=== PATIENT | male | born 1970 | race Caucasian/White ===

== ENCOUNTER 2020-09-19 11:43 | Emergency (ER) | payer OTHER, SELFPAY ==
[2020-09-19 11:50] VITALS: BP 174/84; PULSE 74; RESP 15; TEMP 37; O2SAT 96; BMI 39.3
--- NOTE | 2020-09-19 11:55 | DI.RAD.S_ITS ---
PROCEDURE: XR FINGER RT MIN 2V INDICATIONS: SMASHED FINGER,LAC RIGHT THUMB TECHNIQUE: AP hand, 2 views of the 1st finger(s) acquired. COMPARISON: None. FINDINGS: Bones: There is a comminuted fracture of the distal aspect of the distal 1st phalanx. Soft tissues: No suspicious soft tissue calcifications. IMPRESSION: Distal 1st tuft fracture. Dictated by: Octavia Stephens M.D. on 09/19/2020 at 12:20 Approved by: Octavia Stephens M.D. on 09/19/2020 at 12:24
[2020-09-19] MEDS: BACITRACIN OINT 0.9 GM PCKT 1 APPLIC TOP (13:16)
[2020-09-19] MEDS: IBUPROFEN 400 MG TABLET 800 MG PO (13:17)
[2020-09-19] MEDS: LIDO 1%/SOD BICARB 8.4% (10ML) 10 ML SYRINGE INJ (13:17)
[2020-09-19] MEDS: cephALEXin 250 MG CAPSULE 500 MG PO (13:17)
[2020-09-19] MEDS: ACETAMINOPHEN 325 MG TABLET 975 MG PO (13:17)
--- NOTE | 2020-09-19 14:14 | ED.WOUNDLAC ---
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 Patient reports injury occurred during work from a crush injury at 9:30 a.m. patient reports affected finger got squished by steel rock drill hand iii cutter. Patient reports pain located in distal right thumb with swelling. Reports pain as 7/10 and describes as throbbing. Patient reports intact sensation and is able to move right thumb but painful. Last tetanus immunization received 2 months ago. Related Data Previous Rx's Medication Instructions Recorded cephalexin [Keflex] 500 mg PO QID 7 Days #28 cap 09/19/20 hydrocodone-acetaminophen [[place]] 1 tab PO Q6H PRN #7 tab 09/19/20 Allergies Allergy/AdvReac Type Severity Reaction Status Date / Time No Known Drug Allergies Allergy Verified 09/19/20 11:56 Review of Systems <REMEDIOS Anderson - Last Filed: 09/19/20 14:43> Review of Systems Narrative: General: Denies fever, chills, fatigue, malaise, sweats. Respiratory: Denies dyspnea, cough, wheezing, hemoptysis, sputum. Cardiovascular: Denies chest pain, palpitations, orthopnea, edema. Gastrointestinal: Denies nausea, vomiting, abdominal pain, diarrhea, constipation, melena. : Denies dysuria, frequency, incontinence, hematuria, urinary retention. Musculoskeletal: See HPI Skin: See HPI Patient History <REMEDIOS Anderson - Last Filed: 09/19/20 14:43> Medical History No significant past medical history Surgical History No pertinent past surgical history Social History Smoking Status: Current every day smoker alcohol intake: never substance use type: does not use Exam <REMEDIOS Anderson - Last Filed: 09/19/20 14:43> Narrative Exam Narrative: General appearance: well developed, well nourished, in no acute distress. Head: normocephalic, atraumatic, no scalp lesions, non-tender. ENT: Hearing grossly intact. Airway patent. Neck/Thyroid: neck supple, full range of motion, no visible masses or meningeal signs. No JVD, non-tender without lymphadenopathy. Skin: 3 cm laceration located in volar aspect of proximal right thumb. Distal thumb with edema and warmth and tender to palpate. Warm and dry and appropriate color for ethnicity. Heart: no clubbing, no cyanosis, no edema. S1 and S2 normal. RRR w/o murmurs, clicks, or bruits. Lungs: Breathing even and unlabored. No stridor. No accessory muscles used. Able to speak in full sentences. Chest: normal shape and expansion. Abdomen: non-obese, non-distended. Neurologic: alert and oriented. Cognitive exam, SPUD SORTER and PNS grossly intact on informal exam. Psych: good eye contact, normal affect. Initial Vital Signs Initial Vital Signs: Vital Signs Temperature 98.6 F 09/19/20 11:50 Pulse Rate 74 09/19/20 11:50 Respiratory Rate 15 09/19/20 11:50 Blood Pressure 174/84 H 09/19/20 11:50 Pulse Oximetry 96 09/19/20 11:50 Extrem Right upper extremity: wrist Details: normal to inspection; no tenderness and no swelling and hand Details: abnormal to inspection, neuromotor exam normal, neurosensory exam normal, tendon exam normal, tenderness, vascular exam Details: radial pulse present and normal capillary refill, normal ROM of fingers, warmth, swelling and laceration; no ecchymosis and no foreign bodies <Sarah Jara DO - Last Filed: 09/19/20 19:21> Initial Vital Signs Initial Vital Signs: Vital Signs Temperature 98.6 F 09/19/20 11:50 Pulse Rate 74 09/19/20 11:50 Respiratory Rate 15 09/19/20 11:50 Blood Pressure 174/84 H 09/19/20 11:50 Pulse Oximetry 96 09/19/20 11:50 Procedures <REMEDIOS Anderson - Last Filed: 09/19/20 14:43> Laceration Repair Laceration 1: Site: hand Side (If applicable): right Size (cm): 3 Description: linear Depth: simple, single layer Local Anesthetic: lidocaine 1% and with bicarb Amount of anesthesia used (mL): 4 Pre-repair: wound explored and irrigated extensively Skin layer closed with: nylon Size (cm): 4-0 Number of sutures: 4 Technique: simple, interrupted Orthopedic Splinting/Casting Injury #1: Side: right Upper Extremity Injury Location: finger Upper Extremity Immobilizer: aluminum form splint Post splinting neuro exam: intact Post splinting vascular exam: intact Placed by: Nursing Scores <REMEDIOS Anderson - Last Filed: 09/19/20 14:43> GCS Lyn coma scale eye opening: Spontaneous Lyn coma scale verbal response: Orientated Lyn coma scale motor response: Obey commands Snowflake coma scale total score: 15 Course <REMEDIOS Anderson - Last Filed: 09/19/20 14:43> Orders Ordered: ED Orders 09/19/20 11:55 XR finger RT min 2V Stat Discontinued Medications Acetaminophen (Acetaminophen 325 Mg Tablet) 975 mg PO NOW ONE Stop: 09/19/20 13:11 Last Admin: 09/19/20 13:17 Dose: 975 mg Documented by: JUAN DAVID Hydrocodone Bitart/Acetaminophen (Hydrocodone/Acet 5/325 Tablet) 1 tab PO NOW ONE Stop: 09/19/20 13:09 Last Admin: 09/19/20 13:24 Dose: Not Given Documented by: JUAN DAVID Bacitracin (Bacitracin Oint 0.9 Gm Pckt) 1 applic TOP NOW ONE Stop: 09/19/20 12:18 Last Admin: 09/19/20 13:16 Dose: 1 applic Documented by: JUAN DAVID Cephalexin HCl (Cephalexin 250 Mg Capsule) 500 mg PO NOW ONE Stop: 09/19/20 13:09 Last Admin: 09/19/20 13:17 Dose: 500 mg Documented by: JUAN DAVID Ibuprofen (Ibuprofen 400 Mg Tablet) 800 mg PO NOW ONE Stop: 09/19/20 13:09 Last Admin: 09/19/20 13:17 Dose: 800 mg Documented by: JUAN DAVID Lidocaine/Sodium Bicarbonate (Lido 1%/Sod Bicarb 8.4% (10ml) 10 Ml Syringe) 10 ml INJ NOW ONE Stop: 09/19/20 12:19 Last Admin: 09/19/20 13:17 Dose: 10 ml Documented by: JUAN DAVID Vital Signs Vital signs: Vital Signs - 8 hr 09/19/20 11:50 09/19/20 14:35 Temperature 98.6 F 98.8 F Pulse Rate 74 72 Respiratory Rate 15 16 Blood Pressure 174/84 H 118/72 Pulse Oximetry 96 97 <Sarah Jara, DO - Last Filed: 09/19/20 19:21> Orders Ordered: ED Orders 09/19/20 11:55 XR finger RT min 2V Stat Discontinued Medications Acetaminophen (Acetaminophen 325 Mg Tablet) 975 mg PO NOW ONE Stop: 09/19/20 13:11 Last Admin: 09/19/20 13:17 Dose: 975 mg Documented by: JUAN DAVID Hydrocodone Bitart/Acetaminophen (Hydrocodone/Acet 5/325 Tablet) 1 tab PO NOW ONE Stop: 09/19/20 13:09 Last Admin: 09/19/20 13:24 Dose: Not Given Documented by: JUAN DAVID Bacitracin (Bacitracin Oint 0.9 Gm Pckt) 1 applic TOP NOW ONE Stop: 09/19/20 12:18 Last Admin: 09/19/20 13:16 Dose: 1 applic Documented by: JUAN DAVID Cephalexin HCl (Cephalexin 250 Mg Capsule) 500 mg PO NOW ONE Stop: 09/19/20 13:09 Last Admin: 09/19/20 13:17 Dose: 500 mg Documented by: JUAN DAVID Ibuprofen (Ibuprofen 400 Mg Tablet) 800 mg PO NOW ONE Stop: 09/19/20 13:09 Last Admin: 09/19/20 13:17 Dose: 800 mg Documented by: JUAN DAVID Lidocaine/Sodium Bicarbonate (Lido 1%/Sod Bicarb 8.4% (10ml) 10 Ml Syringe) 10 ml INJ NOW ONE Stop: 09/19/20 12:19 Last Admin: 09/19/20 13:17 Dose: 10 ml Documented by: JUAN DAVID Vital Signs Vital signs: Vital Signs - 8 hr 09/19/20 11:50 09/19/20 14:35 Temperature 98.6 F 98.8 F Pulse Rate 74 72 Respiratory Rate 15 16 Blood Pressure 174/84 H 118/72 Pulse Oximetry 96 97 [facility] - Wound/Laceration <Vikas REMEDIOS Burleson - Last Filed: 09/19/20 14:43> Differential Diagnosis Differential diagnosis: Likely laceration and other (Finger fracture) Medical Records Attestation: I reviewed the patient's medical records. Imaging Data XR-Finger RT thumb: Radiologist's Impression: [address] [id number] ReportSigned Patient: Ehsan Barnes CMR#: [id number]: [id number]:[id number]/Sex: 49 / MDate of Service: 09/19/20Loc: EDAccession Number: [id number] Procedure: XR finger RT min 2V Ordering Provider: Sarah Jara D.O. PROCEDURE: XR FINGER RT MIN 2V INDICATIONS: SMASHED FINGER,LAC RIGHT THUMB TECHNIQUE: AP hand, 2 views of the 1st finger(s) acquired. COMPARISON: None. FINDINGS: Bones: There is a comminuted fracture of the distal aspect of the distal 1st phalanx. Soft tissues: No suspicious soft tissue calcifications. IMPRESSION: Distal 1st tuft fracture. Dictated by: Octavia Stephens M.D. on 09/19/2020 at 12:20 Approved by: Octavia Stephens M.D. on 09/19/2020 at 12:24 [facility] Narrative Medical decision making narrative: This is a 49-year-old gentleman who presents to ED with right dominant hand, a laceration to volar aspect of thumb with pain and swelling after the crushed injury by steel clamp. He has intact sensation and is able to flex and extend right thumb. Laceration was repaired with 4 sutures and please see procedure note. X-ray test shows distal phalanx, comminuted fracture. Treating patient has open fracture and 1st dose antibiotic medication Keflex was provided in ED. patient advised to monitor for signs and symptoms for infection and compartment syndrome. Advised to use finger splint after 24 hour when bulky dressing is removed and reviewed application procedure with patient. Patient resides in [place], [place] and advised to follow-up with orthopedist. Return precautions were discussed with patient and he verbalized understanding and agreement with the treatment plan. Patient discharged to home with 7 day course of Keflex q.i.d. dose and a few tabs of [place] for severe pain with narcotic medication precautions. CD copy of x-ray provided for patient and cool pack as well provided. Discharge Plan Departure Patient Disposition: Home Clinical Impression: Fracture of finger, distal phalanx, right, open Qualifiers: Encounter type: initial encounter Finger: thumb Fracture alignment: displaced Qualified Code(s): S62.521B - Displaced fracture of distal phalanx of right thumb, initial encounter for open fracture Instructions: DI for Laceration Repair, DI for Open Fracture Activity Restrictions/Additional Instructions: You have been diagnosed with [open fracture on right thumb from crushed injury. Laceration has been repaired with 4 sutures. Please use splint on affected thumb after the bulky dressing is removed in 24 hours.]. What to do: *Take your medications as directed. You can use [id number] Tylenol and or Motrin as needed for discomfort for light to moderate pain. You can take 650-1000 mg Tylenol up to 3 to 4 times a day. Ibuprofen 400-600 mg up to 3 to 4 times a day as needed for pain. Please take ibuprofen with food to decrease GI irritation. For severe pain you can supplement 1 tab of regular Tylenol with [place]. [place] is narcotic pain medication so please do not drive, drink alcohol, or operate heavy equipments. It can also cause constipation so please take precautions such as increasing water and fiber in her diet. You can also take [id number] stool softener. Please do not get your wound soaked in the water until suture removal. Keep your dressing intact for next 24 hrs. After then, you could remove your dressing, wash with soap and water. Pat dry with clean paper towel and dress it with antibiotic ointment. You can change dressing as needed and daily. Please monitor for signs and symptoms for infection such as increasing redness, swelling, warmth, pain, fever, purulent discharge. If this occurs, please return to ED or follow up with your primary care physician since your wound may be gotten infected. Please follow up with your primary care provider in 2-3 days for recheck wound. Your suture should be removed [ 7-10 ] days. This can be done by your primary provider, walk-in clinic or here in ED. Please keep your wound clean, dry and intact all times. Please use cool pack for next 24-48 hours on affected finger to decrease swelling and elevate affected finger. *Follow up with your primary care provider in 2-3 days, call for an appointment. Please follow-up with orthopedist in 2-3 days locally where you live. Let them know you were seen in the ED and that we asked you to be seen in follow up. *Return to ED if you have any new, worsening, or concerning symptoms, such as [significant pain, tingling/numbness/weakness to affected finger, signs and symptoms for compartment syndrome, signs and symptoms for infection as above or any acute concerns]. Prescriptions: New cephalexin [Keflex] 500 mg capsule 500 mg PO QID 7 Days Qty: 28 RF: 0 hydrocodone-acetaminophen [[place]] 5-325 mg tablet 1 tab PO Q6H PRN (Reason: pain) Qty: 7 RF: 0 Referrals: [facility] [Provider Group]
[2020-09-19 14:35] VITALS: BP 118/72; PULSE 72; RESP 16; TEMP 37.1; O2SAT 97
== END 2020-09-19 14:43 | disposition home or self-care (01) ==
PROVIDERS: Emergency Provider Nurse Practitioner Family
DX: S62.521B Displaced fracture of distal phalanx of right thumb, initial encounter for open fracture (principal); W23.0XXA Caught, crushed, jammed, or pinched between moving objects, initial encounter; Y99.0 Civilian activity done for income or pay
CPT/HCPCS: 12002; 73140; 99283